=== PATIENT | female | born 1940 | race Caucasian/White ===

== ENCOUNTER → 2021-11-05 | Outpatient (CLI) | payer OTHER | END | disposition home or self-care (01) | LOC: RAH 11:21 | PROVIDERS: ATTEND Family Medicine | DX: S22.080A Wedge compression fracture of T11-T12 vertebra, initial encounter for closed fracture (principal); M53.84 Other specified dorsopathies, thoracic region; X58.XXXA Exposure to other specified factors, initial encounter; Y93.89 Activity, other specified; Y92.89 Other specified places as the place of occurrence of the external cause; Y99.8 Other external cause status | CPT/HCPCS: 72146 ==

== ENCOUNTER 2022-05-20 05:55 | Observation (INO) | payer OTHER ==
[2022-05-14 12:08] LABS: HEMATOCRIT 37.8 % (36-48); LYMPHOCYTES % (AUTO) 34.7 % (21.0-51.0); MEAN CORPUSCULAR HEMOGLOBIN 30.7 pg (27.0-33.0); MEAN CORPUSCULAR HGB CONC 33.3 g/dL (32.0-36.0); MONOCYTES % (AUTO) 11.6 % (3.0-13.0); NEUTROPHILS % (AUTO) 49.7 % (40.0-77.0); PLATELET COUNT (AUTO) 174 K/uL (130-400); RED BLOOD CELL COUNT(AUTO) 4.11 MIL/uL (4.00-5.50); RED CELL DISTRIBUTION WIDTH 12.3 % (11.0-15.5)
[2022-05-14 12:16] LABS: CREATININE 0.9 mg/dL (0.5-1.5); POTASSIUM 4.6 mmol/L (3.5-5.1)
[2022-05-14 13:19] LABS: INR 0.96 (0.85-1.15); PROTHROMBIN TIME 10.5 SEC (9.6-11.6)
[2022-05-14 13:20] LABS: PARTIAL THROMBOPLASTIN TIME 29.4 SEC (26.3-35.5)
[2022-05-14 13:29] LABS: EOSINOPHILS % (MANUAL) 2 % (1-6); LYMPHOCYTES % (MANUAL) 28 % (22-44); MAN.DIFF COMMENT-IMPRESSION MANUAL DIFFERENTIAL; MONOCYTES % (MANUAL) 12 % (2-9); SEGMENTED NEUTROPHILS % 58 % (40-70)
[2022-05-14 13:30] LABS: PLATELET MORPHOLOGY COMMENT ADEQUATE
[2022-05-15] MEDS: CEFAZOLIN SODIUM 1 GM VIAL IVP SCH (06:00)
[2022-05-15 13:12] VITALS: BP 202/78
[2022-05-16] MEDS: CEFAZOLIN SODIUM 1 GM VIAL IVP SCH (13:30)
[2022-05-17] MEDS: CEFAZOLIN SODIUM 1 GM VIAL IVP SCH (13:30)
[2022-05-20] VITALS (25 sets, daily range): BP systolic 102–151; BP diastolic 43–78
[~2022-05-20] VITALS: Ht 170.2 cm; Wt 103.8 kg
[~2022-05-20 05:55] MED LIST: ACETAMINOPHEN PO; CALC-866 PO
[2022-05-20] MEDS ORDERED: LACTATED RINGERS 1000ML 1,000 ML IV ONE (06:08)
[2022-05-20] MEDS ORDERED: MIDAZOLAM HCL 1 MG/ML 2ML VIAL ONE (07:13)
[2022-05-20] MEDS ORDERED: ROPIVACAINE 0.5% 5MG/ML 30ML IJ ONE (07:14)
[2022-05-20] MEDS ORDERED: ONDANSETRON 4MG INJ ONE (07:15)
[2022-05-20] MEDS ORDERED: FENTANYL CITRATE PF 50 MCG/1 ML 2ML VIAL ONE (07:16)
[2022-05-20] MEDS ORDERED: PROPOFOL 10 MG/ML 20ML VIAL IV ONE (07:16)
[2022-05-20] MEDS ORDERED: ROCURONIUM 10MG/1ML SYR 10 MG/ML ML ONE ×2 (07:16→08:12)
[2022-05-20] MEDS ORDERED: DEXAMETHASONE SOD PHOSPHATE 10MG/ML 1ML VIAL ONE (07:17)
[2022-05-20] MEDS ORDERED: HYDROCODONE/ACETAMINOPHEN 5/325 MG TAB PO PRN (08:00)
[2022-05-20] MEDS ORDERED: POTASSIUM CHLORIDE 10% ELIXIR 20 MEQ/15 ML UDCUP PO PRN (08:00)
[2022-05-20] MEDS ORDERED: KCL 20 MEQ ERTAB PO PRN (08:00)
[2022-05-20] MEDS: 0.9%NACL 1000ML 1,000 ML IV SCH ×3 (08:00→23:47)
[2022-05-20] MEDS ORDERED: POTASSIUM CHLORIDE 20MEQ/100ML 100 ML IV PRN (08:00)
[2022-05-20] MEDS ORDERED: ONDANSETRON 4MG INJ IVP PRN (08:00)
[2022-05-20] MEDS ORDERED: LIDOCAINE HCL-MPF 1% 2ML VIAL IV PRN (08:00)
[2022-05-20] MEDS: CEFAZOLIN SODIUM 1 GM VIAL IVP SCH ×4 (08:02→20:10)
[2022-05-20] MEDS ORDERED: TRANEXAMIC ACID 1000MG/10ML ONE (08:23)
[2022-05-20] MEDS: FAMOTIDINE 20MG TAB PO SCH ×2 (09:00→20:10)
[2022-05-20] MEDS: POLYETHYLENE GLYCOL 3350 17 GM POWD.PACK PO SCH (09:00)
[2022-05-20] MEDS ORDERED: EPHEDRINE SULFATE 50 MG/ML AMPULE ONE (09:29)
[2022-05-20] MEDS ORDERED: NEOSTIGMINE 5MG/5ML SYR IV ONE (10:20)
[2022-05-20] MEDS ORDERED: GLYCOPYRROLATE 1 MG/5 ML SYRINGE ONE (10:20)
[2022-05-20] MEDS ORDERED: MEPERIDINE-PF 25 MG/ML SYG ONE (10:25)
[2022-05-20] MEDS: MORPHINE 4 MG SYG IVP PRN (11:58)
[2022-05-20] MEDS: TRAMADOL HCL 50 MG TABLET PO SCH ×3 (12:00→23:47)
[2022-05-20] MEDS: HYDROCODONE/ACETAMINOPHEN 10/325 MG TAB PO PRN ×2 (13:15→20:11)
[2022-05-20] MEDS: ACETAMINOPHEN 500 MG TABLET PO SCH ×2 (16:12→23:52)
[2022-05-21] VITALS (7 sets, daily range): BP systolic 115–142; BP diastolic 53–70
[2022-05-21] MEDS: HYDROCODONE/ACETAMINOPHEN 10/325 MG TAB PO PRN ×3 (03:57→17:40)
[2022-05-21 04:21] LABS: HEMATOCRIT 34.2 % (36-48); MEAN CORPUSCULAR HEMOGLOBIN 30.5 pg (27.0-33.0); MEAN CORPUSCULAR HGB CONC 33.3 g/dL (32.0-36.0); MEAN CORPUSCULAR VOLUME 91.4 fL (79-99); RED BLOOD CELL COUNT(AUTO) 3.74 MIL/uL (4.00-5.50); RED CELL DISTRIBUTION WIDTH 12.3 % (11.0-15.5); WHITE BLOOD COUNT (AUTO) 8.4 K/uL (4.8-10.8)
[2022-05-21 04:46] LABS: CREATININE 0.9 mg/dL (0.5-1.5); POTASSIUM 4.3 mmol/L (3.5-5.1)
[2022-05-21] MEDS: TRAMADOL HCL 50 MG TABLET PO SCH ×3 (05:16→17:39)
[2022-05-21] MEDS: ACETAMINOPHEN 500 MG TABLET PO SCH ×2 (10:16→12:07)
[2022-05-21] MEDS: POLYETHYLENE GLYCOL 3350 17 GM POWD.PACK PO SCH (12:04)
[2022-05-21] MEDS: FAMOTIDINE 20MG TAB PO SCH ×2 (12:05→20:07)
[2022-05-21] MEDS: ENOXAPARIN SODIUM 30 MG/0.3 ML SQ SCH (12:06)
[2022-05-21] MEDS: MORPHINE 4 MG SYG IVP PRN (12:14)
[2022-05-22] MEDS: HYDROCODONE/ACETAMINOPHEN 10/325 MG TAB PO PRN ×3 (02:37→18:14)
[2022-05-22 04:05] VITALS: BP 123/59
[2022-05-22] MEDS: TRAMADOL HCL 50 MG TABLET PO SCH ×4 (06:22→18:13)
[2022-05-22 07:59] VITALS: BP 151/61
[2022-05-22] MEDS: POLYETHYLENE GLYCOL 3350 17 GM POWD.PACK PO SCH (09:00)
[2022-05-22] MEDS: MORPHINE 4 MG SYG IVP PRN ×2 (10:15→15:28)
[2022-05-22 11:03] VITALS: BP 146/68
[2022-05-22] MEDS: ACETAMINOPHEN 500 MG TABLET PO SCH ×3 (11:52→16:39)
[2022-05-22] MEDS: FAMOTIDINE 20MG TAB PO SCH (11:54)
[2022-05-22] MEDS: ENOXAPARIN SODIUM 30 MG/0.3 ML SQ SCH (11:55)
[2022-05-22 16:26] VITALS: BP 124/70
[2022-05-23] MEDS ORDERED: BISACODYL 10 MG SUPP.RECT RC PRN (08:00)
== END 2022-05-22 18:19 ==
LOC: DAH 05:55 → DAHIP 05:56 → UNDOADMOB 08:13 → 4AH 12:40
PROVIDERS: ADMIT Orthopaedic Surgery; ATTEND Orthopaedic Surgery
DX: M16.12 Unilateral primary osteoarthritis, left hip (principal); Z20.822 Contact with and (suspected) exposure to COVID-19; M41.9 Scoliosis, unspecified; Z79.899 Other long term (current) drug therapy
CPT/HCPCS: 80048 ×2; 85025; 85610; 85730; 87426; 36415 ×2; 73502; 93005; 87641; 27130; 96374; 96376 ×3; 96375; 76942; 64450; 73503; 72170; 96372 ×2; 85027; 97161; 97039 ×4; 97116 ×4; 97530 ×4; A6260; G0378 ×55; J7120 ×2; A4606; J3010; J0690 ×3; J3490 ×3; J1100; J2710; J7030; J2250; J2704; J2405; J2270 ×4; J2175; J2795; A6219; G0168; A4930 ×2; A4649 ×2; C1776; A6255; A5120 ×2; A4215; A4223; A4222; A4221; A4663; J1650 ×2

== ENCOUNTER → 2022-06-10 | Outpatient (CLI) | payer OTHER | END | disposition home or self-care (01) | LOC: RAH 09:33 | PROVIDERS: ATTEND Orthopaedic Surgery | DX: R60.9 Edema, unspecified (principal); I73.9 Peripheral vascular disease, unspecified; M79.605 Pain in left leg; Z96.642 Presence of left artificial hip joint | CPT/HCPCS: 93971 ==

== ENCOUNTER → 2023-06-25 | Outpatient (CLI) | payer OTHER | END | disposition home or self-care (01) | LOC: RAH 10:20 | PROVIDERS: ATTEND Family Medicine | DX: S22.080G Wedge compression fracture of T11-T12 vertebra, subsequent encounter for fracture with delayed healing (principal); M41.85 Other forms of scoliosis, thoracolumbar region; M47.814 Spondylosis without myelopathy or radiculopathy, thoracic region; X58.XXXD Exposure to other specified factors, subsequent encounter | CPT/HCPCS: 72070 ==

== ENCOUNTER → 2023-11-03 | Outpatient (CLI) | payer OTHER | END | disposition home or self-care (01) | LOC: RAH 14:18 | PROVIDERS: ATTEND Family Medicine | DX: M48.061 Spinal stenosis, lumbar region without neurogenic claudication (principal); M51.36 Other intervertebral disc degeneration, lumbar region; G95.29 Other cord compression | CPT/HCPCS: 72148 ==